=== PATIENT | female | born 1985 | race Two or more races ===

== ENCOUNTER 2016-12-12 14:18 | Emergency (ER) | payer OTHER ==
[~2016-12-12] VITALS: Ht 170.2 cm; Wt 113.4 kg
[~2016-12-12 14:18] MED LIST: ALBU2.5V11; HYDR1TAB; METF500T PO; PRED5TAB; QUET25TA PO; SERT20OR PO; TOPI50TA PO; TRAM7.5P2; UNABLE TO OBTAIN; ZOLOFT PO
[2016-12-12 14:23] VITALS: BP 136/73
[2016-12-12] MEDS ORDERED: HYDROCODONE/APAP 10/325MG 1 EA TABLET PO ONE (15:00)
--- NOTE | 2016-12-12 15:00 | NUR ---
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
[2016-12-12] MEDS ORDERED: HYDROCODONE/APAP 10/325MG 1 EA TABLET ONE (15:05)
== END 2016-12-12 15:13 | disposition home or self-care (01) ==
LOC: ER 14:22
DX: S00.212A Abrasion of left eyelid and periocular area, initial encounter (principal); S00.211A Abrasion of right eyelid and periocular area, initial encounter; E11.9 Type 2 diabetes mellitus without complications; J45.909 Unspecified asthma, uncomplicated; N83.202 Unspecified ovarian cyst, left side; Z88.0 Allergy status to penicillin; Z91.19 Patient's noncompliance with other medical treatment and regimen; X58.XXXA Exposure to other specified factors, initial encounter; Y92.89 Other specified places as the place of occurrence of the external cause; Y93.89 Activity, other specified; Y99.8 Other external cause status
CPT/HCPCS: 99282; A4606; Z7610

== ENCOUNTER 2021-04-03 12:07 | Emergency (ER) | payer OTHER ==
[~2021-04-03] VITALS: Ht 170.2 cm; Wt 142.0 kg
[2021-04-03 12:23] VITALS: BP 129/93
--- NOTE | 2021-04-03 12:25 | NUR ---
PT C/O PAIN AND "POSSIBLE INSECT BITE" TO R SIDE OF FACE AND BACK NOTED X 3 DAYS; REDNESS/ DISCOLORATION NOTED. PCP AWARE; PCP "PUSHED PUSS OUT OF IT". PT HAS BEEN PUTTING NEOSPORIN SITE. PT A/OX4. TOLERATING R/A WELL.
--- NOTE | 2021-04-03 12:38 | NUR ---
AT PT'S BEDSIDE
--- NOTE | 2021-04-03 14:22 | NUR ---
URINE COLLECTED AND SENT TO LAB
[2021-04-03] MEDS ORDERED: DOXY100C2 PO (14:35)
[2021-04-03 15:10] LABS: BILIRUBIN,URINE NEGATIVE (NEGATIVE); COLOR,URINE YELLOW (YELLOW); LEUKOCYTE ESTERASE ,URINE NEGATIVE (NEGATIVE); NITRITE, URINE NEGATIVE (NEGATIVE); PROTEIN,URINE NEGATIVE (NEGATIVE); UGLUCOSE >=1000 mg/dL (NEGATIVE); UROBILINOGEN,URINE 0.2 EU/dL (0.2)
[2021-04-03 15:15] LABS: BACTERIA,URINE RARE /HPF (None Seen); WBC,URINE 0-2 /HPF (0-3); YEAST,URINE Few /HPF (None Seen)
[2021-04-03] MEDS ORDERED: CLOT21CR7 VG (15:36)
--- NOTE | 2021-04-03 15:44 | NUR ---
PT WAS GIVEN AND UNDERSTOOD DISCHARGE INSTURCTIONS AND PRESCRIPTION. PATIENT WAS STABLE AND VITAL SIGNS WITHIN NORMAL LIMITS.
== END 2021-04-03 15:44 | disposition home or self-care (01) ==
LOC: ER 12:11
DX: L02.811 Cutaneous abscess of head [any part, except face] (principal); B37.3 Candidiasis of vulva and vagina; J45.909 Unspecified asthma, uncomplicated; E11.9 Type 2 diabetes mellitus without complications; Z98.890 Other specified postprocedural states; Z88.0 Allergy status to penicillin; Z79.899 Other long term (current) drug therapy; Z79.84 Long term (current) use of oral hypoglycemic drugs
CPT/HCPCS: 81001; 87086-TC

== ENCOUNTER 2022-07-11 02:29 | Emergency (ER) | payer OTHER ==
[~2022-07-11] VITALS: Ht 170.2 cm; Wt 136.1 kg
[~2022-07-11 02:29] MED LIST changes: +CLOT21CR7 VG; +DOXY100C2 PO
[2022-07-11 03:11] VITALS: BP 160/109
[2022-07-11] MEDS ORDERED: CEPH500C2 PO (03:13)
[2022-07-11] MEDS ORDERED: SULF1TAB48 PO (03:13)
[2022-07-11] MEDS ORDERED: LIDOCAINE /MPF 1% VIAL 5 ML VIAL ONE (03:13)
[2022-07-11] MEDS ORDERED: PROCHLORPERAZINE EDISYLATE 10 MG/2 ML VIAL IVP ONE (03:30)
[2022-07-11] MEDS ORDERED: SULFAMETH/TRIMETH 800/160 MG 1 UDTAB TABLET PO ONE (03:30)
[2022-07-11] MEDS ORDERED: CEPHALEXIN MONOHYDRATE 500 MG CAPSULE PO ONE ×2 (03:30→03:43)
[2022-07-11] MEDS ORDERED: SULFAMETH/TRIMETH 800/160 MG 1 UDTAB TABLET ONE (03:44)
--- NOTE | 2022-07-11 03:51 | NUR ---
Patient discharged to home in stable condition. Written and verbal after care instructions given. Patient verbalizes understanding of instruction. Pt ambulatory with a steady gait
== END 2022-07-11 03:52 | disposition home or self-care (01) ==
LOC: ER 02:31
DX: L02.413 Cutaneous abscess of right upper limb (principal); I10 Essential (primary) hypertension; E11.9 Type 2 diabetes mellitus without complications; J45.909 Unspecified asthma, uncomplicated; Z88.0 Allergy status to penicillin; Z79.899 Other long term (current) drug therapy
CPT/HCPCS: 99283; 10060; J3490